=== PATIENT | male | born 1940 | race American Indian/Alaskan Native ===

== ENCOUNTER 2020-08-23 23:18 | Emergency (ER) | payer MEDICARE ==
--- NOTE | 2020-08-24 01:08 | Emergency Department Report ---
ED Fall HPI - General Chief Complaint: Fall Stated Complaint: FALL Time Seen by Provider: 08/24/20 00:17 Source: patient, EMS Mode of arrival: Wheelchair Limitations: No Limitations - History of Present Illness Initial Comments: 80-year-old male with a past medical history of renal failure on dialysis, diabetes, cognitive communication deficit, G-tube, hypertension, chronic atrial fibrillation currently on Eliquis, history of DVT, and CAD [facility] with head injury status post fall. I saw patient here on August 12 with a similar presentation. Patient states he was walking with his walker and slipped on something on the floor falling forward and striking his forehead. He denies LOC. He currently denies pain. Patient is oriented to person, place (knows he is at hospital), and year. - Related Data Home Medications Medication Instructions Recorded Confirmed Last Taken Aspirin [Adult Aspirin] 81 mg PO QDAY 06/06/20 06/06/20 Unknown AtorvaSTATin [Lipitor] 40 mg PO HS 06/06/20 06/06/20 Unknown Colchicine 0.6 mg PO QDAY 06/06/20 06/06/20 Unknown allopurinoL [Zyloprim] 300 mg PO QDAY 06/06/20 06/06/20 Unknown Previous Rx's Medication Instructions Recorded Last Taken Type Apixaban [Eliquis] 2.5 mg PO Q12HR tablet 06/16/20 Unknown Rx Metoprolol [Lopressor TAB] 12.5 mg PO BID tablet 06/16/20 Unknown Rx Simple Syrup 30 ml FEEDTUBE PRN PRN oral.liqd 06/16/20 Unknown Rx Sodium Bicarbonate 325 mg FEEDTUBE PRN PRN tablet 06/16/20 Unknown Rx Sucralfate [Carafate] 1 gm PO ACHS oral.liqd 06/16/20 Unknown Rx cephALEXin [Keflex] 250 mg PO Q6HR #28 capsule 08/13/20 Unknown Rx Allergies Allergy/AdvReac Type Severity Reaction Status Date / Time No Known Allergies Allergy Unverified 06/04/20 10:00 ED Review of Systems ROS: Stated complaint: FALL Other details as noted in HPI Comment: All other systems reviewed and negative ED Past Medical Hx - Past Medical History Hx Hypertension: Yes Hx Diabetes: Yes Hx Liver Disease: No Hx Renal Disease: No Hx Dementia: Yes Additional medical history: GOUT - Surgical History Hx Open Heart Surgery: Yes Additional Surgical History: BYPASS - Social History Smoking Status: Never Smoker Substance Use Type: None - Medications Home Medications: Home Medications Medication Instructions Recorded Confirmed Last Taken Type Aspirin [Adult Aspirin] 81 mg PO QDAY 06/06/20 06/06/20 Unknown History AtorvaSTATin [Lipitor] 40 mg PO HS 06/06/20 06/06/20 Unknown History Colchicine 0.6 mg PO QDAY 06/06/20 06/06/20 Unknown History allopurinoL [Zyloprim] 300 mg PO QDAY 06/06/20 06/06/20 Unknown History Apixaban [Eliquis] 2.5 mg PO Q12HR tablet 06/16/20 Unknown Rx Metoprolol [Lopressor TAB] 12.5 mg PO BID tablet 06/16/20 Unknown Rx Simple Syrup 30 ml FEEDTUBE PRN PRN oral.liqd 06/16/20 Unknown Rx Sodium Bicarbonate 325 mg FEEDTUBE PRN PRN tablet 06/16/20 Unknown Rx Sucralfate [Carafate] 1 gm PO ACHS oral.liqd 06/16/20 Unknown Rx cephALEXin [Keflex] 250 mg PO Q6HR #28 capsule 08/13/20 Unknown Rx ED Physical Exam - General Limitations: Physical Limitation - Other Other exam information: General: No acute distress Head: Large forehead hematoma Eyes: normal appearance, mild bilateral periorbital ecchymosis ENT: Moist mucous membranes Neck: Normal appearance, no midline tenderness Chest: Clear to auscultation bilaterally CV: Regular rate and rhythm Abdomen: Soft, normal bowel sounds, nontender, nondistended, no rebound or guarding. Positive PEG tube Back: Normal inspection Extremity: Normal inspection, full range of motion, no pain with active or passive movement of extremities. No pelvic tenderness with palpation or movement or hips Neuro: Alert O x 3, no facial asymmetry, speech clear, no gross motor sensory deficit Psych: Appropriate behavior Skin: No rash ED Course Vital Signs 08/23/20 08/24/20 08/24/20 23:26 00:00 00:06 Temperature 98.1 F Pulse Rate 62 Respiratory 17 Rate Blood Pressure 135/88 O2 Sat by Pulse 98 95 99 Oximetry 08/24/20 08/24/20 00:15 00:30 Temperature Pulse Rate Respiratory Rate Blood Pressure 158/101 O2 Sat by Pulse 100 100 Oximetry ED Medical Decision Making - Radiology Data Radiology results: report reviewed CT head/brain wo con INDICATION: Head injury, fall. TECHNIQUE: Routine CT head without contrast. All CT scans at this location are performed using CT dose reduction for ALARA by means of automated exposure control. COMPARISON: Head CT on 08/11/2020 FINDINGS: BRAIN / INTRACRANIAL CONTENTS: No acute hemorrhage, brain edema, mass effect, or hydrocephalus. Normal aaron-white differentiation. There is stable extensive chronic small vessel ischemic demyelination in the cerebral white matter. CALVARIUM/SKULL BASE/CRANIOCERVICAL JUNCTION: No evidence of fracture. ORBITS: No significant abnormality of visualized orbits. SINUSES / MASTOIDS: No significant abnormality of visualized sinuses and mastoid air cells. ADDITIONAL FINDINGS: There is an extra cranial scalp hematoma in the frontal scalp. IMPRESSION: 1. No acute intracranial abnormality. 2. Extracranial scalp hematoma in the frontal scalp. CT CERVICAL SPINE WITHOUT CONTRAST INDICATION: Head injury, on Eliquis. TECHNIQUE: Axial CT images of the spine were obtained. Sagittal and coronal reformatted images were produced. All CT scans at this location are performed using CT dose reduction for ALARA by means of automated exposure control. COMPARISON: 08/12/2020 FINDINGS: ACUTE FRACTURE(S) OR SUBLUXATION: None. SPINAL DEGENERATIVE CHANGES: Unchanged chronic fusion of C3-C5 with moderate degenerative disc disease at C2-3 and at C5-6. Unchanged grade 1 anterolisthesis of C2 on C3. 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 PARASPINAL SOFT TISSUES: No soft tissue swelling or other acute abnormalities. ADDITIONAL FINDINGS: Atherosclerotic calcification is seen in the bilateral carotid bulbs and proximal internal carotid arteries. IMPRESSION: 1. No acute fracture or subluxation in the spine in neutral position. 2. Incidental degenerative changes in the cervical spine appear similar to prior studies - Medical Decision Making Pt without complaint since in ED and denies pain CT head and CT cervical spine without acute findings. PT will be Critical Care Time: No Critical care attestation.: If time is entered above; I have spent that time in minutes in the direct care of this critically ill patient, excluding procedure time. ED Disposition Clinical Impression: Fall, Traumatic hematoma of forehead, Current use of senior living anticoagulation Disposition: 09 OP ADMIT IP TO THIS HOSP Is pt being admited?: Yes Condition: Stable Instructions: Fall Prevention for Older Adults (ED), Contusion in Adults (ED) Additional Instructions: Follow-up with your doctor or doctor/clinic provided. Return if symptoms worsen as indicated by your discharge instructions. Referrals: PRIMARY CARE, [Primary Care Provider] - 3-5 Days Time of Disposition: 02:18
--- NOTE | 2020-08-24 01:25 | Cat Scan Report ---
CT head/brain wo con INDICATION: Head injury, fall. TECHNIQUE: Routine CT head without contrast. All CT scans at this location are performed using CT dose reduction for ALARA by means of automated exposure control. COMPARISON: Head CT on 08/11/2020 FINDINGS: BRAIN / INTRACRANIAL CONTENTS: No acute hemorrhage, brain edema, mass effect, or hydrocephalus. Theresa l aaron-white differentiation. There is stable extensive chronic small vessel ischemic demyelination i n the cerebral white matter. CALVARIUM/SKULL BASE/CRANIOCERVICAL JUNCTION: No evidence of fracture. ORBITS: No significant abnormality of visualized orbits. SINUSES / MASTOIDS: No significant abnormality of visualized sinuses and mastoid air cells. ADDITIONAL FINDINGS: There is an extra cranial scalp hematoma in the frontal scalp. IMPRESSION: 1. No acute intracranial abnormality. 2. Extracranial scalp hematoma in the frontal scalp. Signer Name: Lc Mendoza MD Signed: 08/24/2020 1:20 AM Workstation Name: [id number]
--- NOTE | 2020-08-24 01:27 | Cat Scan Report ---
CT CERVICAL SPINE WITHOUT CONTRAST INDICATION: Head injury, on Eliquis. TECHNIQUE: Axial CT images of the spine were obtained. Sagittal and coronal reformatted images were produced. Al l CT scans at this location are performed using CT dose reduction for ALARA by means of automated exp osure control. COMPARISON: 08/12/2020 FINDINGS: ACUTE FRACTURE(S) OR SUBLUXATION: None. SPINAL DEGENERATIVE CHANGES: Unchanged chronic fusion of C3-C5 with moderate degenerative disc diseas e at C2-3 and at C5-6. Unchanged grade 1 anterolisthesis of C2 on C3. Unchanged advanced DJD in the a tlantodental articulation with associated os odontoideum. PARASPINAL SOFT TISSUES: No soft tissue swelling or other acute abnormalities. ADDITIONAL FINDINGS: Atherosclerotic calcification is seen in the bilateral carotid bulbs and proxima l internal carotid arteries. IMPRESSION: 1. No acute fracture or subluxation in the spine in neutral position. 2. Incidental degenerative changes in the cervical spine appear similar to prior studies. Signer Name: Lc Mendoza MD Signed: 08/24/2020 1:22 AM Workstation Name: [id number]
[2020-08-24 03:21] VITALS: BP 133/80
== END 2020-08-24 03:20 | disposition admitted as inpatient to this hospital (09) ==
LOC: ED 23:18
DX: S00.83XA Contusion of other part of head, initial encounter (principal); I10 Essential (primary) hypertension; E11.9 Type 2 diabetes mellitus without complications; F03.90 Unspecified dementia, unspecified severity, without behavioral disturbance, psychotic disturbance, mood disturbance, and anxiety; Z79.01 Long term (current) use of anticoagulants; Z98.890 Other specified postprocedural states; Z79.899 Other long term (current) drug therapy; W01.10XA Fall on same level from slipping, tripping and stumbling with subsequent striking against unspecified object, initial encounter; Y93.89 Activity, other specified; Y92.89 Other specified places as the place of occurrence of the external cause; Y99.8 Other external cause status
CPT/HCPCS: 70450; 72125